=== PATIENT | female | born 1990 | race Caucasian/White ===

== ENCOUNTER 2018-03-19 11:32 | Day surgery (SDC) | payer OTHER ==
[~2018-03-19 11:32] MED LIST: SODIUM CHLORIDE 0.9% 1,000 ML IV ONE
[2018-03-19] MEDS ORDERED: LIDOCAINE/PF 2% 5 ML VIAL IM ONE (11:33)
[2018-03-19] MEDS ORDERED: PROPOFOL 1% 20 ML VIAL IVP ONE (11:33)
[2018-03-19] MEDS ORDERED: MIDAZOLAM HCL 2 MG/2 ML VIAL IVP ONE (11:33)
[2018-03-19] MEDS ORDERED: SODIUM CHLORIDE 0.9% 1,000 ML IV ONE (12:00)
[2018-03-19] MEDS ORDERED: LAMO100 PO ×2 (12:05)
[2018-03-19] MEDS ORDERED: LEVE500T53 PO (12:05)
[2018-03-19] MEDS ORDERED: TRAZ-219 PO (12:05)
[2018-03-19] MEDS ORDERED: CLON2 PO ×2 (12:05)
[2018-03-19] MEDS ORDERED: ZONI100 PO (12:05)
[2018-03-19] MEDS ORDERED: NORE1PAT7 TD (12:05)
[2018-03-20] MEDS ORDERED: POVIDONE-IODINE 10% 120 ML SOLUTION TP SCH (09:00)
[2018-03-20] MEDS ORDERED: HYDROGEN PEROXIDE 473 ML SOLUTION TP SCH (09:00)
== END 2018-03-19 14:05 | disposition home or self-care (01) ==
LOC: SURGERY 11:32
PROVIDERS: ATTEND Internal Medicine Gastroenterology
DX: Z43.4 Encounter for attention to other artificial openings of digestive tract (principal); R13.10 Dysphagia, unspecified; G80.8 Other cerebral palsy; Z86.69 Personal history of other diseases of the nervous system and sense organs; Z79.891 Long term (current) use of opiate analgesic; Z79.899 Other long term (current) drug therapy; Z98.890 Other specified postprocedural states
CPT/HCPCS: 36415; 43246; 84702; J2250; J2704; J3490; J7030

== ENCOUNTER 2018-05-03 12:21 | Emergency (ER) | payer OTHER ==
[~2018-05-03] VITALS: Ht 154.9 cm; Wt 44.1 kg
[~2018-05-03 12:21] MED LIST changes: +CLON2 PO; +LAMO100 PO; +LEVE500T53 PO; +NORE1PAT7 TD; -SODIUM CHLORIDE 0.9% 1,000 ML IV ONE; +TRAZ-219 PO; +ZONI100 PO
[2018-05-03 13:13] LABS: PROTHROMBIN TIME 10.4 SEC (9.4-11.6)
[2018-05-03] MEDS ORDERED: DIATRIZOATE MEGLU/SOD 660/100 MG/ML 120 ML BOTTLE ONE (14:48)
[2018-05-03 15:59] VITALS: BP 126/71
== END 2018-05-03 16:24 | disposition home or self-care (01) ==
LOC: EMS 12:22
DX: K94.23 Gastrostomy malfunction (principal)
CPT/HCPCS: 36245; 36415; 49440; 76000; 85610; 99284; C1769; C1887; Q9963

== ENCOUNTER 2018-05-19 08:55 | Emergency (ER) | payer OTHER ==
[~2018-05-19] VITALS: Ht 149.9 cm; Wt 40.9 kg
[~2018-05-19 08:55] MED LIST changes: -NORE1PAT7 TD
[2018-05-19] MEDS ORDERED: DIATRIZOATE MEGLU/SOD 660/100 MG/ML 120 ML BOTTLE ONE ×2 (10:44→11:29)
[2018-05-19] MEDS ORDERED: LORazepam 2 MG/ML VIAL IVP ONE (10:45)
[2018-05-19] MEDS ORDERED: TRAZ150 PO (10:46)
[2018-05-19 12:03] VITALS: BP 105/56
== END 2018-05-19 12:05 | disposition home or self-care (01) ==
LOC: EMS 08:55
DX: K94.23 Gastrostomy malfunction (principal); G80.9 Cerebral palsy, unspecified; Z93.1 Gastrostomy status
CPT/HCPCS: 43760; 74018; 99284; Q9963

== ENCOUNTER 2018-05-21 11:49 | Day surgery (SDC) | payer OTHER ==
[~2018-05-21] VITALS: Ht 160 cm; Wt 40.9 kg
[~2018-05-21 11:49] MED LIST changes: -TRAZ-219 PO; +TRAZ150 PO
[2018-05-21] MEDS ORDERED: LIDOCAINE/PF 2% 5 ML VIAL INJ ONE (12:00)
[2018-05-21] MEDS ORDERED: PHENYLEPHRINE HCL 10 MG/ML VIAL IVP ONE (12:00)
[2018-05-21] MEDS ORDERED: SODIUM CHLORIDE 0.9% 1,000 ML IV ONE (13:00)
[2018-05-22] MEDS ORDERED: HYDROGEN PEROXIDE 473 ML SOLUTION TP SCH (09:00)
[2018-05-22] MEDS ORDERED: POVIDONE-IODINE 10% 120 ML SOLUTION TP SCH (09:00)
== END 2018-05-21 15:45 | disposition home or self-care (01) ==
LOC: SURGERY 11:49
PROVIDERS: ATTEND Internal Medicine Gastroenterology
DX: K94.23 Gastrostomy malfunction (principal); R13.10 Dysphagia, unspecified; G80.8 Other cerebral palsy; Z86.69 Personal history of other diseases of the nervous system and sense organs; Z98.890 Other specified postprocedural states; Z79.899 Other long term (current) drug therapy
CPT/HCPCS: 43246; J2370; J3490; J7030

== ENCOUNTER 2019-04-02 07:35 | Day surgery (SDC) | payer OTHER ==
[~2019-04-02] VITALS: Ht 149.9 cm; Wt 40.9 kg
[~2019-04-02 07:35] MED LIST changes: +SODIUM CHLORIDE 0.9% 1,000 ML IV ONE; -ZONI100 PO; +[UNRECOGNIZED DRUG - CODE] PO
[2019-04-02] MEDS ORDERED: PROPOFOL 1% 20 ML VIAL IVP ONE (07:36)
[2019-04-02] MEDS ORDERED: SODIUM CHLORIDE 0.9% 1,000 ML IV ONE (08:50)
== END 2019-04-02 10:55 | disposition home or self-care (01) ==
LOC: SURGERY 07:35
PROVIDERS: ATTEND Internal Medicine Gastroenterology
DX: K94.23 Gastrostomy malfunction (principal); G40.909 Epilepsy, unspecified, not intractable, without status epilepticus; G80.9 Cerebral palsy, unspecified; G47.00 Insomnia, unspecified; Z79.899 Other long term (current) drug therapy; Z98.890 Other specified postprocedural states
CPT/HCPCS: 36415; 43246; 84702; J2704; J7030

== ENCOUNTER 2019-06-25 13:48 | Emergency (ER) | payer OTHER ==
[~2019-06-25] VITALS: Ht 149.9 cm; Wt 40.9 kg
[~2019-06-25 13:48] MED LIST changes: -SODIUM CHLORIDE 0.9% 1,000 ML IV ONE; +ZONI100C30 PO; -[UNRECOGNIZED DRUG - CODE] PO
[2019-06-25 17:01] VITALS: BP 94/62
== END 2019-06-25 17:14 | disposition home or self-care (01) ==
LOC: EMS 13:50
DX: K94.23 Gastrostomy malfunction (principal); Z98.890 Other specified postprocedural states; Z79.899 Other long term (current) drug therapy; Y83.8 Other surgical procedures as the cause of abnormal reaction of the patient, or of later complication, without mention of misadventure at the time of the procedure

== ENCOUNTER 2019-06-26 08:19 | Emergency (ER) | payer OTHER ==
[~2019-06-26] VITALS: Ht 149.9 cm; Wt 40.9 kg
[2019-06-26] MEDS ORDERED: DIATRIZOATE MEGLU/SOD 660/100 MG/ML 120 ML BOTTLE ONE (09:16)
[2019-06-26 11:40] VITALS: BP 121/61
== END 2019-06-26 12:02 | disposition home or self-care (01) ==
LOC: EMS 08:23
DX: K94.23 Gastrostomy malfunction (principal); G80.9 Cerebral palsy, unspecified; Y73.2 Prosthetic and other implants, materials and accessory gastroenterology and urology devices associated with adverse incidents; Z79.899 Other long term (current) drug therapy
CPT/HCPCS: 49440; 99284; Q9963

== ENCOUNTER 2019-08-13 11:42 | Emergency (ER) | payer OTHER ==
[~2019-08-13] VITALS: Ht 160 cm; Wt 38.2 kg
[2019-08-13] MEDS ORDERED: TRAZ150 PO (11:54)
[2019-08-13] MEDS ORDERED: DIATRIZOATE MEGLU/SOD 660/100 MG/ML 120 ML BOTTLE ONE (12:43)
[2019-08-13 14:37] VITALS: BP 89/57
== END 2019-08-13 14:49 | disposition home or self-care (01) ==
LOC: EMS 11:50
DX: K94.23 Gastrostomy malfunction (principal); Z98.890 Other specified postprocedural states; Z79.899 Other long term (current) drug therapy; Y73.2 Prosthetic and other implants, materials and accessory gastroenterology and urology devices associated with adverse incidents
CPT/HCPCS: 49450; 99284; C1769; Q9963; 76000

== ENCOUNTER 2020-11-24 03:28 | Emergency (ER) | payer OTHER ==
[~2020-11-24] VITALS: Ht 121.9 cm; Wt 40.9 kg
[~2020-11-24 03:28] MED LIST changes: +CLON-598 PO; -CLON2 PO
[2020-11-24] MEDS ORDERED: DIATRIZOATE MEGLU/SOD 660/100 MG/ML 120 ML BOTTLE ONE (10:18)
[2020-11-24] MEDS ORDERED: LIDOCAINE 2% 5 ML JELLY ONE (10:22)
[2020-11-24 11:40] VITALS: BP 134/70
== END 2020-11-24 11:50 | disposition home or self-care (01) ==
LOC: EMS 03:28
DX: K94.23 Gastrostomy malfunction (principal)
CPT/HCPCS: 43246; 99284; Q9963